=== PATIENT | male | born 1970 | race Caucasian/White ===

== ENCOUNTER 2018-04-02 01:03 | Inpatient (IN) | payer BC, OTHER ==
[2018-04-02 02:30] LABS: BASO % 0.5 % (0.0-1.0); EOS # 0.4 10^3/uL (0.0-0.50); EOS % 4.5 % (0.0-3.0); HEMATOCRIT 36.4 % (42.0-52.0); HEMOGLOBIN 11.3 g/dl (13.5-17.5); IMMATURE GRANULOCYTE % 0.2 % (0-3.0); LYMPH # 3.2 10^3/uL (1.5-4.5); LYMPH % 38.3 % (24.0-44.0); MEAN CORPUSCULAR HEMOGLOBIN 25.3 pg (27.0-33.0); MEAN CORPUSCULAR VOLUME 81.6 fl (80.0-96.0); MONO # 0.9 10^3/uL (0.0-0.8); MONO % 10.6 % (0.0-5.0); NEUTROPHILS # 3.9 10^3/uL (1.8-7.7); NEUTROPHILS % 45.9 % (36.0-66.0); PLATELET COUNT, AUTOMATED 410 10^3/uL (150-450); RED BLOOD COUNT 4.46 10^6/uL (4.30-6.10); RED CELL DISTRIBUTION WIDTH 13.7 % (11.5-14.5); WHITE BLOOD COUNT 8.4 10^3/uL (4.0-10.0)
[2018-04-02 02:48] LABS: PARTIAL THROMBOPLASTIN TIME 31.3 SECONDS (25.4-37.6); PROTHROMBIN TIME 13.3 SECONDS (12.1-14.4)
[2018-04-02 02:52] LABS: ANION GAP 9 MEQ/L (8-16); BLOOD UREA NITROGEN 15 MG/DL (7-18); CALCIUM LEVEL 8.3 MG/DL (8.5-10.1); CARBON DIOXIDE LEVEL 27 MEQ/L (21-32); CHLORIDE LEVEL 112 MEQ/L (98-107); CREATININE FOR GFR 0.84 MG/DL (0.70-1.30); GLOMERULAR FILTRATION RATE > 60.0 (>60); GLUCOSE, FASTING 121 MG/DL (70-100); POTASSIUM SERUM 3.8 MEQ/L (3.5-5.1); SODIUM LEVEL 148 MEQ/L (136-145)
[2018-04-02] MEDS: LevoFLOXacin IV 750 MG in APPROPRIATE DILUENT 1 EA IV (04:00)
[2018-04-02] MEDS: NS 1,000 ML IV (05:10)
[2018-04-02] MEDS ORDERED: fentaNYL 100 MCG/2 ML INJECTION (J3010) As Ordered (09:17)
[2018-04-02] MEDS ORDERED: MIDAZOLAM INJ 2 MG/2 ML VIAL (J2250) As Ordered (09:18)
[2018-04-02] MEDS ORDERED: ONDANSETRON 4MG/2ML VIAL (J2405) As Ordered (09:18)
[2018-04-02] MEDS ORDERED: LIDOCAINE 2% INJ 100 MG/5 ML SDV (FOR ANES.) As Ordered (09:18)
[2018-04-02] MEDS ORDERED: dexameTHASONE 4 MG/ML 1ML VIAL (J1100) As Ordered (09:18)
[2018-04-02] MEDS ORDERED: PROPOFOL 200 MG/20 ML VIAL As Ordered (09:18)
[2018-04-02] MEDS: CONRAY-60 60% 50ML VIAL (Q9961) As Ordered (10:17)
[2018-04-02] MEDS ORDERED: PHENYLephrine HCL 500 MCG/5 ML (100MCG/ML) SYRINGE (J2370) As Ordered (10:31)
[2018-04-02] MEDS ORDERED: ACETAMINOPHEN TAB 650MG DOSE (2X325MG) As Ordered (10:59)
[2018-04-02] MEDS: ACETAMINOPHEN TAB 650MG DOSE (2X325MG) PO ×2 (11:00→12:59)
[2018-04-02] MEDS ORDERED: PERCOCET 5MG/325MG TAB PO (11:15)
[2018-04-02] MEDS: LR 1,000 ML IV (11:15)
[2018-04-02] MEDS ORDERED: fentaNYL 100 MCG/2 ML INJECTION (J3010) IV (11:15)
[2018-04-02] MEDS ORDERED: ACETAMINOPHEN TAB 650MG DOSE (2X325MG) PO (11:15)
[2018-04-02] MEDS: ATORVASTATIN 20 MG TAB PO (12:59)
[2018-04-02] MEDS: METOPROLOL TART 25 MG TABLET PO (12:59)
[2018-04-02 16:44] LABS: BEDSIDE GLUCOSE 113 MG/DL (70-105)
[2018-04-02 16:44] LABS: BEDSIDE GLUCOSE 107 MG/DL (70-105)
[2018-04-02 16:44] LABS: BEDSIDE GLUCOSE 93 MG/DL (70-105)
[2018-04-02] MEDS ORDERED: LevoFLOXacin IV 750 MG in APPROPRIATE DILUENT 1 EA IV (21:00)
== END 2018-04-02 16:25 | disposition home or self-care (01) | DRG 465 ==
LOC: M ED 01:03 → M ED INP 03:10 → M MS5PR 04:50
PROC: 0T778DZ Dilation of Left Ureter with Intraluminal Device, Via Natural or Artificial Opening Endoscopic (ICD-10-PCS; principal; 2018-04-02 08:00)
DX: N20.1 Calculus of ureter (principal); I10 Essential (primary) hypertension; Z87.891 Personal history of nicotine dependence; E11.9 Type 2 diabetes mellitus without complications; E78.5 Hyperlipidemia, unspecified; Z79.4 Long term (current) use of insulin; Z79.899 Other long term (current) drug therapy; I25.10 Atherosclerotic heart disease of native coronary artery without angina pectoris; Z95.2 Presence of prosthetic heart valve

== ENCOUNTER 2018-05-15 07:18 | Day surgery (SDC) | payer BC, OTHER ==
[2018-05-15] MEDS ORDERED: LIDOCAINE 2% INJ 100 MG/5 ML SDV (FOR ANES.) As Ordered ×2 (07:24→07:26)
[2018-05-15] MEDS ORDERED: PROPOFOL 200 MG/20 ML VIAL As Ordered (07:24)
[2018-05-15] MEDS ORDERED: fentaNYL 100 MCG/2 ML INJECTION (J3010) As Ordered ×2 (07:24→08:39)
[2018-05-15] MEDS ORDERED: dexameTHASONE 4 MG/ML 1ML VIAL (J1100) As Ordered (07:24)
[2018-05-15] MEDS ORDERED: ROCURONIUM BROMIDE 50 MG/5 ML VIAL As Ordered (07:27)
[2018-05-15] MEDS ORDERED: MIDAZOLAM INJ 2 MG/2 ML VIAL (J2250) As Ordered (07:58)
[2018-05-15 08:06] LABS: BEDSIDE GLUCOSE 148 MG/DL (70-105)
[2018-05-15] MEDS ORDERED: LR 1,000 ML IV ×2 (08:15→09:30)
[2018-05-15] MEDS ORDERED: METOCLOPRAMIDE INJ 10MG/2ML VIAL (J2765) As Ordered (08:20)
[2018-05-15] MEDS ORDERED: ONDANSETRON 4MG/2ML VIAL (J2405) As Ordered (08:25)
[2018-05-15] MEDS ORDERED: PHENYLephrine HCL 500 MCG/5 ML (100MCG/ML) SYRINGE (J2370) As Ordered ×2 (08:31→08:52)
[2018-05-15] MEDS: CONRAY-60 60% 50ML VIAL (Q9961) As Ordered (08:42)
[2018-05-15] MEDS ORDERED: ESMOLOL INJ 100MG/10ML VIAL As Ordered ×2 (08:43)
[2018-05-15 09:24] LABS: BEDSIDE GLUCOSE 159 MG/DL (70-105)
[2018-05-15] MEDS ORDERED: ONDANSETRON 4MG/2ML VIAL (J2405) IV (09:30)
[2018-05-15] MEDS ORDERED: METOCLOPRAMIDE INJ 10MG/2ML VIAL (J2765) IV (09:30)
[2018-05-15] MEDS ORDERED: fentaNYL 100 MCG/2 ML INJECTION (J3010) IV (09:30)
[2018-05-15] MEDS ORDERED: PERCOCET 5MG/325MG TAB PO ×2 (09:30)
[2018-05-15] MEDS: PERCOCET 5MG/325MG TAB PO (10:03)
== END 2018-05-15 11:37 | disposition home or self-care (01) ==
LOC: M SDC 07:18
DX: N20.1 Calculus of ureter (principal); I25.10 Atherosclerotic heart disease of native coronary artery without angina pectoris; I10 Essential (primary) hypertension; I25.2 Old myocardial infarction; E78.5 Hyperlipidemia, unspecified; E11.9 Type 2 diabetes mellitus without complications; Z79.4 Long term (current) use of insulin; Z79.84 Long term (current) use of oral hypoglycemic drugs; Z79.899 Other long term (current) drug therapy
CPT/HCPCS: 52332

== ENCOUNTER 2024-04-09 10:39 | Inpatient (IN) | payer BC ==
[~2024-04-09 10:39] MED LIST: APPLTAB2 PO; ASPI81TA26 PO; ATOR40TA75 PO; DITR5TAB PO; GLIP5TAB20 PO; IBUP200T46 PO; LANTINJ4 SC; LEVA750T7 PO; LOPE2CAP PO; METF500T13 PO; METO25TA4 PO; METO37.5 PO; RANI150T PO; VITADRO5 PO
[2024-04-09] MEDS ORDERED: ONDANSETRON 4MG TAB PO PRN (14:00)
[2024-04-09] MEDS ORDERED: FLEET ENEMA PR PRN (14:00)
[2024-04-09] MEDS ORDERED: BISACODYL 5MG TAB PO PRN (14:00)
[2024-04-09] MEDS ORDERED: FAMOTIDINE 20 MG TAB PO PRN (14:00)
[2024-04-09] MEDS ORDERED: HEPARIN SOD (PORCINE) 5000UNITS/ML 1ML VIAL/SYRINGE SC SCH (14:00)
[2024-04-09] MEDS ORDERED: MAALOX 30 ML SUSP *UDC PO PRN (14:00)
[2024-04-09] MEDS ORDERED: GLUCOSE 4 GM CHEW PO PRN (14:45)
[2024-04-09] MEDS ORDERED: DEXTROSE 50% 50ML SYRINGE IV PRN (14:45)
[2024-04-09] MEDS ORDERED: GLUCAGON INJ 1MG VIAL SC PRN (14:45)
[2024-04-09 17:00] VITALS: BP 125/66; TEMP 97.8; O2SAT 100
[2024-04-09] MEDS ORDERED: INSU100V12 SQ (18:06)
[2024-04-09] MEDS ORDERED: JARD1TAB3 PO (18:06)
[2024-04-09] MEDS ORDERED: ENTR1TAB PO (18:06)
[2024-04-09] MEDS ORDERED: ROSU40TA81 PO (18:06)
[2024-04-09] MEDS ORDERED: INSUHUMDS SC (18:06)
[2024-04-09] MEDS ORDERED: CARV25TA PO (18:06)
[2024-04-09] MEDS ORDERED: SENN-186 PO (18:07)
[2024-04-09] MEDS ORDERED: ASPE4PAD2 TOP (18:09)
[2024-04-09] MEDS ORDERED: HOME MED LIST COMPLETE! XX SCH (18:10)
[2024-04-09] MEDS: CARVedilol 12.5 MG TAB PO SCH (19:03)
[2024-04-09] MEDS: INSULIN LISPRO (NovoLOG) PER UNIT SC SCH ×2 (19:03→21:00)
[2024-04-09] MEDS: ACETAMINOPHEN 325 MG TAB PO PRN (19:08)
[2024-04-09 20:00] VITALS: BP 111/62; TEMP 98.4; O2SAT 98
[2024-04-09] MEDS: ASPIRIN 325 MG TAB PO SCH (21:00)
[2024-04-09] MEDS: glipiZIDE XL 5 MG TABCR PO SCH (21:00)
[2024-04-09] MEDS: FAMOTIDINE 20 MG TAB PO SCH (21:01)
[2024-04-09] MEDS: metFORMIN (GLUCOPHAGE) 500MG TAB PO SCH (21:01)
[2024-04-09] MEDS: LEVEMIR (INSULIN DETEMIR) 1 UNITS/0.01ML SC SCH (21:02)
[2024-04-10 04:00] VITALS: BP 110/62; TEMP 97; O2SAT 93
[2024-04-10 06:22] LABS: BASO # 0.1 10^3/uL (0.0-0.2); BASO % 0.8 % (0.0-1.0); EOS # 0.3 10^3/uL (0.0-0.5); EOS % 4.6 % (0.0-3.0); HEMATOCRIT 38.7 % (42.0-52.0); HEMOGLOBIN 12.1 g/dl (13.5-17.5); LYMPH # 2.1 10^3/uL (1.5-5.0); LYMPH % 34.8 % (24.0-44.0); MEAN CORPUSCULAR HEMOGLOBIN 25.9 pg (27.0-33.0); MEAN CORPUSCULAR HGB CONC 31.3 g/dl (32.0-36.5); MEAN CORPUSCULAR VOLUME 82.9 fl (80.0-96.0); MONO # 0.5 10^3/uL (0.0-0.8); MONO % 8.3 % (2.0-8.0); NEUTROPHILS # 3.1 10^3/uL (1.5-8.5); NEUTROPHILS % 51.3 % (36.0-66.0); PLATELET COUNT, AUTOMATED 298 10^3/uL (150-450); RED BLOOD COUNT 4.67 10^6/uL (4.30-6.10); WHITE BLOOD COUNT 6.1 10^3/uL (4.0-10.0)
[2024-04-10 06:55] LABS: BLOOD UREA NITROGEN 17 MG/DL (9-23); CARBON DIOXIDE LEVEL 28 MMOL/L (20-31); CHLORIDE LEVEL 103 MMOL/L (98-107); CREATININE FOR GFR 0.64 MG/DL (0.70-1.30); GLOMERULAR FILTRATION RATE > 60.0 (>56); GLUCOSE, FASTING 118 MG/DL (60-100); POTASSIUM SERUM 4.2 MMOL/L (3.5-5.1); SODIUM LEVEL 141 MMOL/L (136-145)
[2024-04-10] MEDS: ATORVASTATIN 20 MG TAB PO SCH (07:36)
[2024-04-10] MEDS: metFORMIN (GLUCOPHAGE) 500MG TAB PO SCH (07:36)
[2024-04-10] MEDS: DAPAGLIFLOZIN PROPANEDIOL 10MG TABLET (FARXIGA) PO SCH (07:37)
[2024-04-10] MEDS: LIDOCAINE 5% (LIDODERM) PATCH TD SCH (07:38)
[2024-04-10 12:00] VITALS: BP 116/60; TEMP 96.3; O2SAT 96
[2024-04-10] MEDS: ENTRESTO 24-26MG TABLET (SACUBITRIL/VALSARTAN) PO SCH (12:25)
[2024-04-10] MEDS: LOPERAMIDE 2 MG CAPLET PO PRN (12:25)
[2024-04-10] MEDS: CARVedilol 12.5 MG TAB PO SCH (18:22)
[2024-04-10 20:00] VITALS: BP 127/67; TEMP 97.6; O2SAT 98
[2024-04-11 04:00] VITALS: BP 141/74; TEMP 97.2; O2SAT 96
[2024-04-11] MEDS: ENOXAPARIN 40MG/0.4ML SYRINGE (J1650 PER 10MG) SC SCH (07:40)
[2024-04-11 12:00] VITALS: BP 112/56; TEMP 97.3; O2SAT 99
[2024-04-11 16:51] VITALS: BP 116/60
[2024-04-11 20:00] VITALS: BP 123/66; TEMP 97.4; O2SAT 96
[2024-04-12 04:00] VITALS: BP 119/60; TEMP 97.5; O2SAT 95
[2024-04-12 12:00] VITALS: BP 112/64; TEMP 97.2; O2SAT 97
[2024-04-12 17:18] VITALS: BP 118/64
[2024-04-12 20:35] VITALS: BP 124/62; TEMP 97.6; O2SAT 97
[2024-04-13 04:00] VITALS: BP 131/81; TEMP 97.6; O2SAT 97
[2024-04-13 12:00] VITALS: BP 129/58; TEMP 97.4; O2SAT 98
[2024-04-13 20:00] VITALS: BP 128/66; TEMP 98.2; O2SAT 98
[2024-04-13] MEDS: MOM 30ML SUSPENSION UDC PO PRN (21:27)
[2024-04-13] MEDS: BISACODYL 10MG SUPP PR PRN (21:28)
[2024-04-14 04:00] VITALS: BP 107/52; TEMP 97.4; O2SAT 95
[2024-04-14 12:00] VITALS: BP 110/58; TEMP 98.3; O2SAT 97
[2024-04-14 20:00] VITALS: BP 116/60; TEMP 97.2; O2SAT 95
[2024-04-15 04:00] VITALS: BP 112/53; TEMP 97.1; O2SAT 95
[2024-04-15] MEDS: MIRALAX *UNIT DOSE* 17GM PACKET PO PRN (08:34)
[2024-04-15 12:00] VITALS: BP 118/63; TEMP 97.9; O2SAT 97
[2024-04-15 19:35] VITALS: BP 119/57; TEMP 98.7; O2SAT 96
[2024-04-16 03:57] VITALS: BP 109/55; TEMP 97.9; O2SAT 94
[2024-04-16 07:57] VITALS: BP 113/65
[2024-04-16] MEDS ORDERED: GLIP5TAB20 PO (10:01)
[2024-04-16] MEDS ORDERED: MIRA33506 PO (10:01)
[2024-04-16] MEDS ORDERED: ACET32TAB PO (10:01)
[2024-04-16] MEDS ORDERED: JARD1TAB3 PO (10:01)
[2024-04-16] MEDS ORDERED: LIDO5TD TD (10:01)
[2024-04-16] MEDS ORDERED: CARV12.5 PO (10:01)
[2024-04-16] MEDS ORDERED: ENTR1TAB PO (10:01)
[2024-04-16 12:00] VITALS: BP 109/59; TEMP 96.7; O2SAT 95
== END 2024-04-16 13:20 | disposition home or self-care (01) | DRG 48 ==
LOC: M PM&R 17:00
PROVIDERS: ADMIT Physical Medicine & Rehabilitation; ATTEND Physical Medicine & Rehabilitation
DX: G62.81 Critical illness polyneuropathy (principal); E11.9 Type 2 diabetes mellitus without complications; I10 Essential (primary) hypertension; I25.2 Old myocardial infarction; G61.0 Guillain-Barre syndrome; I25.10 Atherosclerotic heart disease of native coronary artery without angina pectoris; Z74.1 Need for assistance with personal care; Z74.09 Other reduced mobility; K21.9 Gastro-esophageal reflux disease without esophagitis; Z79.82 Long term (current) use of aspirin; Z79.4 Long term (current) use of insulin; Z79.899 Other long term (current) drug therapy; Z95.5 Presence of coronary angioplasty implant and graft